=== PATIENT | male | born 1950 | race Caucasian/White ===

== ENCOUNTER 2018-09-29 02:14 | Emergency (ER) | payer MEDICARE, OTHER ==
[2018-09-29] MEDS ORDERED: Sodium Chloride 0.9% 10 ML Syringe FLUSH PRN (02:52)
[2018-09-29] MEDS ORDERED: Calcium Gluconate 10% 1 GM/10 ML SDV IVPUSH ONE (03:24)
[2018-09-29] MEDS ORDERED: Calcium Gluconate 10% 1 GM/10 ML SDV ONE (03:24)
[2018-09-29] MEDS: Atropine 0.1 MG/ML 10 ML Syringe IVPUSH PRN ×2 (03:33→03:43)
[2018-09-29] MEDS ORDERED: fentaNYL 100 MCG/2 ML SDV ONE (03:45)
[2018-09-29] MEDS: EPINEPHrine 1:10,000 1 MG/10 ML Syringe IVPUSH PRN ×2 (04:03→04:16)
[2018-09-29] MEDS ORDERED: EPINEPHrine 1 MG/ML SDV ONE (04:10)
[2018-09-29] MEDS ORDERED: Albuterol/Ipratropium 3.0-0.5 MG/3 ML Neb Soln NEB ONE (04:43)
[2018-09-29] MEDS ORDERED: EPINEPHrine 4 MG in Dextrose 5% in Water 250 ML IV SCH ×2 (04:45)
[2018-09-29] MEDS ORDERED: Piperacillin/Tazobactam 3.375 GM in Sodium Chloride 0.9% 50 ML IV SCH (04:45)
--- NOTE | 2018-09-29 06:40 | EDM.PDOC ---
ED HPI GENERAL MEDICAL PROBLEM - General Chief Complaint: General Stated Complaint: LT FACE LACERATION Time Seen by Provider: 09/29/18 02:30 Source of Information: Reports: Patient, Family, Old Records History Limitations: Reports: Other (dementia ) - History of Present Illness INITIAL COMMENTS - FREE TEXT/NARRATIVE: brought in by ambulance after a fall at home. His is present shortly after arrival and reports that he has been falling on occasion, and they're working to move him into a group home. He fell twice today, both witnessed. The second one he slipped getting off the toilet and caught his lip/jaw on the very edge of the tub. She states he did not otherwise hit his head, and seemed fine afterwards but the PCP has told them if he keeps falling he should come in to be considered for admission to help with the transition in his living situation as she is no longer able to care for him at home. Most recently he was diagnosed with pneumonia approximately 10 days ago and has been on doxycycline twice a day. His reports that he had a bad cough, and the cough has been improving since she started the doxycycline. He has a history of hypertension for which she is on metoprolol, and of Alzheimer's dementia for the last 5 years for which she is on amantadine and donezepil. He is not on any other medications. He does have a history of significant alcohol use prior to the development of his dementia, but his states he has not drunk in 5 years. Nonsmoker. No significant history of cardiac issues, respiratory issues, liver issues or other intra-abdominal pathology. No fever at home, cough is been improving, but his notes that his appetite was significantly decreased over the weekend. In the last couple of days she has noticed significant swelling in his lower extremities which is new, and today his abdomen seems to be more protuberant/ bloated. no nausea or vomiting, no bloody stools but she did notice they were slightly dark this morning. Patient himself is alert and oriented to himself, place, roughly time of year but has no recall of recent events. His states that this is baseline for him. - Related Data Allergies Allergy/AdvReac Type Severity Reaction Status Date / Time No Known Allergies Allergy Verified 08/31/13 09:41 Home Meds: Home Meds Aspirin [Adult Low Dose Aspirin EC] 81 mg PO DAILY 08/31/13 [History] Metoprolol Succinate [Toprol XL] 50 mg PO DAILY 08/31/13 [History] Donepezil HCl 10 mg PO DAILY 09/29/18 [History] Doxycycline [Doxycycline Hyclate] 100 mg PO DAILY 09/29/18 [History] Memantine HCl 10 mg PO DAILY 09/29/18 [History] Past Medical History Cardiovascular History: Reports: Hypertension Respiratory History: Reports: Other (See Below) Other Respiratory History: currently has pneumonia Neurological History: Reports: Alzheimers Disease Social & Family History - Family History Family Medical History: Unobtainable - Tobacco Use Smoking Status *Q: Unknown Ever Smoked - Caffeine Use Caffeine Use: Reports: Other Other Caffeine Use: unknown - Alcohol Use Alcohol Use History: Yes Alcohol Use in Last Twelve Months: No Alcohol Use Comment: heavy alcohol use prior to dementia, but hasn't in five years - Recreational Drug Use Recreational Drug Use: No - Living Situation & Occupation Living situation: Reports: Social History Comment: lives with his , has been falling at home and they are working group home placement. ED ROS GENERAL - Review of Systems Review Of Systems: See Below Constitutional: Reports: Weakness, Fatigue. Denies: Fever, Chills HEENT: Reports: No Symptoms, Other (cut on lip from fall ) Respiratory: Reports: Shortness of Breath, Wheezing, Cough, Sputum Cardiovascular: Reports: Edema. Denies: Dyspnea on Exertion Endocrine: Reports: No Symptoms GI/Abdominal: Reports: Anorexia. Denies: Constipation, Diarrhea, Vomiting : Denies: Frequency, Urgency Musculoskeletal: Reports: No Symptoms Skin: Reports: No Symptoms Neurological: Denies: Headache Psychiatric: Reports: Other (mentation at baseline per ) Hematologic/Lymphatic: Denies: Easy Bruising Immunologic: Reports: No Symptoms ED EXAM, GENERAL - Physical Exam Exam: See Below Free Text/Narrative:: Initial: general, alert, pleasant, oriented to self and place but not time and no memory of recent events. Head atraumatic, face has superficial hemostatic cut on left lower lip. No loose teeth, mucus membranes moist, throat without erythema. Neck mobile. Heart regular rate, no murmur heard, lungs crackles in bases, diminished in bases, few scattered wheezes. Abdomen distended, soft, no rebound or guarding. Peripheral pulses +2 Course - Vital Signs Text/Narrative:: nursing reports had brief episode of bradycardia recorded by auscultation and on sat probe on arrival but rhythm ok now initial impression - falls at home, recent pneumonia, new onset edema and probable ascites, wonder about heart failure. EKG shows prolonged QTc, RBBB labs, CXR ordered. On monitor after ?bradycardia on arrival. Last Recorded V/S: Last Vital Signs Temp 36.4 C 09/29/18 02:15 Pulse 39 L 09/29/18 02:15 Resp 20 09/29/18 02:15 BP 115/55 L 09/29/18 02:15 Pulse Ox 100 09/29/18 02:15 - Orders/Labs/Meds Labs: Laboratory Tests 09/29/18 09/29/18 09/29/18 Range/Units 02:55 02:55 02:55 WBC 11.7 (4.5-12.0) X10-3/uL RBC 3.85 L (4.30-5.75) x10(6)uL Hgb 11.8 L (13.5-17.8) g/dL Hct 35.4 (30.0-51.3) % MCV 91.8 (80-96) fL MCH 30.7 (27.7-33.6) pg MCHC 33.5 (32.2-35.4) g/dL RDW 15.9 H (11.5-15.5) % Plt Count 158 (125-369) X10(3)uL MPV 9.9 (7.4-10.4) fL Neut % (Auto) 82.2 H (46-82) % Lymph % (Auto) 6.2 L (13-37) % [place] % (Auto) 10.8 (4-12) % Eos % (Auto) 0 L (1.0-5.0) % Baso % (Auto) 0 (0-2) % Neut # (Auto) 9.7 H (1.6-8.3) # Lymph # (Auto) 0.7 (0.6-5.0) # [place] # (Auto) 1.3 (0.0-1.3) # Eos # (Auto) 0.0 (0.0-0.8) # Baso # (Auto) 0.0 (0.0-0.2) # PT 14.8 H (8.7-11.1) INR 1.54 H (0.89-1.13) POC VBG pH (7.31-7.41) POC VBG pCO2 (41-51) mmHG POC VBG HCO3 (23-28) mmol/L POC VBG Total CO2 (24-29) mmol/L POC VBG Base Excess (-2-3) mmol/L Sodium 137 (135-145) mmol/L Potassium 4.9 (3.5-5.3) mmol/L Chloride 103 (100-110) mmol/L Carbon Dioxide 22 (21-32) mmol/L BUN 55 H (7-18) mg/dL Creatinine 1.3 (0.70-1.30) mg/dL Est Cr Clr Drug Dosing TNP Estimated GFR (MDRD) 55 L (>60) BUN/Creatinine Ratio 42.3 H (9-20) Glucose 167 H (80-116) mg/dL Lactic Acid (0.4-2.2) mmol/L Calcium 9.0 (8.6-10.2) mg/dL Magnesium 1.7 L (1.8-2.5) mg/dL Total Bilirubin 1.0 (0.1-1.3) mg/dL AST 262 H* (5-25) IU/L ALT 41 H (12-36) U/L Alkaline Phosphatase 190 H (56-112) IU/L Troponin I (<0.017-0.056) ng/mL C-Reactive Protein (0.5-0.9) mg/dL NT-Pro-B Natriuret Pep (<=125) pg/mL Total Protein 7.1 (6.0-8.0) g/dL Albumin 2.4 L (3.2-4.6) g/dL Globulin 4.7 g/dL Albumin/Globulin Ratio 0.5 Urine Color (YELLOW) Urine Appearance (CLEAR) Urine pH (5.0-6.5) Ur Specific Edgar (1.010-1.025) Urine Protein (NEGATIVE) mg/dL Urine Glucose (UA) (NORMAL) mg/dL Urine Ketones (NEGATIVE) mg/dL Urine Occult Blood (NEGATIVE) Urine Nitrite (NEGATIVE) Urine Bilirubin (NEGATIVE) Urine Urobilinogen (NEGATIVE) mg/dL Ur Leukocyte Esterase (NEGATIVE) Urine RBC (0-5) Urine WBC (0-5) Ur Squamous Epith Cells (NS,R,O) Urine Bacteria (NS) Ethyl Alcohol (<0.03) % 09/29/18 09/29/18 09/29/18 Range/Units 02:55 02:55 02:55 WBC (4.5-12.0) X10-3/uL RBC (4.30-5.75) x10(6)uL Hgb (13.5-17.8) g/dL Hct (30.0-51.3) % MCV (80-96) fL MCH (27.7-33.6) pg MCHC (32.2-35.4) g/dL RDW (11.5-15.5) % Plt Count (125-369) X10(3)uL MPV (7.4-10.4) fL Neut % (Auto) (46-82) % Lymph % (Auto) (13-37) % [place] % (Auto) (4-12) % Eos % (Auto) (1.0-5.0) % Baso % (Auto) (0-2) % Neut # (Auto) (1.6-8.3) # Lymph # (Auto) (0.6-5.0) # [place] # (Auto) (0.0-1.3) # Eos # (Auto) (0.0-0.8) # Baso # (Auto) (0.0-0.2) # PT (8.7-11.1) INR (0.89-1.13) POC VBG pH (7.31-7.41) POC VBG pCO2 (41-51) mmHG POC VBG HCO3 (23-28) mmol/L POC VBG Total CO2 (24-29) mmol/L POC VBG Base Excess (-2-3) mmol/L Sodium (135-145) mmol/L Potassium (3.5-5.3) mmol/L Chloride (100-110) mmol/L Carbon Dioxide (21-32) mmol/L BUN (7-18) mg/dL Creatinine (0.70-1.30) mg/dL Est Cr Clr Drug Dosing Estimated GFR (MDRD) (>60) BUN/Creatinine Ratio (9-20) Glucose (80-116) mg/dL Lactic Acid 7.9 H* (0.4-2.2) mmol/L Calcium (8.6-10.2) mg/dL Magnesium (1.8-2.5) mg/dL Total Bilirubin (0.1-1.3) mg/dL AST (5-25) IU/L ALT (12-36) U/L Alkaline Phosphatase (56-112) IU/L Troponin I 0.028 (<0.017-0.056) ng/mL C-Reactive Protein 5.6 H* (0.5-0.9) mg/dL NT-Pro-B Natriuret Pep (<=125) pg/mL Total Protein (6.0-8.0) g/dL Albumin (3.2-4.6) g/dL Globulin g/dL Albumin/Globulin Ratio Urine Color (YELLOW) Urine Appearance (CLEAR) Urine pH (5.0-6.5) Ur Specific Edgar (1.010-1.025) Urine Protein (NEGATIVE) mg/dL Urine Glucose (UA) (NORMAL) mg/dL Urine Ketones (NEGATIVE) mg/dL Urine Occult Blood (NEGATIVE) Urine Nitrite (NEGATIVE) Urine Bilirubin (NEGATIVE) Urine Urobilinogen (NEGATIVE) mg/dL Ur Leukocyte Esterase (NEGATIVE) Urine RBC (0-5) Urine WBC (0-5) Ur Squamous Epith Cells (NS,R,O) Urine Bacteria (NS) Ethyl Alcohol < 0.03 (<0.03) % 09/29/18 09/29/18 09/29/18 Range/Units 02:55 04:22 04:40 WBC (4.5-12.0) X10-3/uL RBC (4.30-5.75) x10(6)uL Hgb (13.5-17.8) g/dL Hct (30.0-51.3) % MCV (80-96) fL MCH (27.7-33.6) pg MCHC (32.2-35.4) g/dL RDW (11.5-15.5) % Plt Count (125-369) X10(3)uL MPV (7.4-10.4) fL Neut % (Auto) (46-82) % Lymph % (Auto) (13-37) % [place] % (Auto) (4-12) % Eos % (Auto) (1.0-5.0) % Baso % (Auto) (0-2) % Neut # (Auto) (1.6-8.3) # Lymph # (Auto) (0.6-5.0) # [place] # (Auto) (0.0-1.3) # Eos # (Auto) (0.0-0.8) # Baso # (Auto) (0.0-0.2) # PT (8.7-11.1) INR (0.89-1.13) POC VBG pH 7.28 L (7.31-7.41) POC VBG pCO2 42.0 (41-51) mmHG POC VBG HCO3 19.9 L (23-28) mmol/L POC VBG Total CO2 21 L (24-29) mmol/L POC VBG Base Excess -7 L (-2-3) mmol/L Sodium (135-145) mmol/L Potassium (3.5-5.3) mmol/L Chloride (100-110) mmol/L Carbon Dioxide (21-32) mmol/L BUN (7-18) mg/dL Creatinine (0.70-1.30) mg/dL Est Cr Clr Drug Dosing Estimated GFR (MDRD) (>60) BUN/Creatinine Ratio (9-20) Glucose (80-116) mg/dL Lactic Acid (0.4-2.2) mmol/L Calcium (8.6-10.2) mg/dL Magnesium (1.8-2.5) mg/dL Total Bilirubin (0.1-1.3) mg/dL AST (5-25) IU/L ALT (12-36) U/L Alkaline Phosphatase (56-112) IU/L Troponin I (<0.017-0.056) ng/mL C-Reactive Protein (0.5-0.9) mg/dL NT-Pro-B Natriuret Pep 1380 H* (<=125) pg/mL Total Protein (6.0-8.0) g/dL Albumin (3.2-4.6) g/dL Globulin g/dL Albumin/Globulin Ratio Urine Color Yellow (YELLOW) Urine Appearance Slightly cloudy (CLEAR) Urine pH 6.0 (5.0-6.5) Ur Specific Edgar 1.025 (1.010-1.025) Urine Protein Negative (NEGATIVE) mg/dL Urine Glucose (UA) Normal (NORMAL) mg/dL Urine Ketones Negative (NEGATIVE) mg/dL Urine Occult Blood Moderate H (NEGATIVE) Urine Nitrite Negative (NEGATIVE) Urine Bilirubin Small H (NEGATIVE) Urine Urobilinogen 1 H (NEGATIVE) mg/dL Ur Leukocyte Esterase Negative (NEGATIVE) Urine RBC 5-10 H (0-5) Urine WBC 0-5 (0-5) Ur Squamous Epith Cells Occasional (NS,R,O) Urine Bacteria Few H (NS) Ethyl Alcohol (<0.03) % Meds: Medications Discontinued Medications Generic Name Dose Route Start Last Admin Trade Name Freq PRN Reason Stop Dose Admin Albuterol/Ipratropium 3 ml 09/29/18 04:43 09/29/18 04:48 Duoneb 3.0-0.5 Mg/3 Ml NEB 09/29/18 04:44 3 ml ONETIME ONE Administration Atropine Sulfate 0.5 mg 09/29/18 03:33 09/29/18 03:43 Atropine 0.1 Mg/Ml IVPUSH 0.5 mg ONETIME PRN Administration Other Calcium Gluconate Confirm 09/29/18 03:24 09/29/18 07:19 Calcium Gluconate Administered 09/29/18 03:25 Not Given Dose 1 gm .ROUTE .STK-MED ONE Calcium Gluconate 1 gm 09/29/18 03:24 09/29/18 03:29 Calcium Gluconate IVPUSH 09/29/18 03:25 1 gm ONETIME ONE Administration Epinephrine HCl Confirm 09/29/18 04:10 09/29/18 07:23 Adrenalin Administered 09/29/18 04:11 Not Given Dose 4 mg .ROUTE .STK-MED ONE Epinephrine HCl 0.1 mg 09/29/18 04:34 09/29/18 04:16 Epinephrine 1:10,000 IVPUSH 0.1 mg ASDIRECTED PRN Administration Other Fentanyl Confirm 09/29/18 03:45 09/29/18 05:49 Sublimaze Administered 09/29/18 03:46 Not Given Dose 100 mcg .ROUTE .STK-MED ONE Piperacillin Sod/Tazobactam 50 mls @ 100 mls/hr 09/29/18 04:45 09/29/18 04:36 Sod 3.375 gm/ Sodium Chloride IV 100 mls/hr Q6H DARA Administration Epinephrine HCl 4 mg/ Dextrose 254 mls @ 48.38 mls/hr 09/29/18 04:45 04:17 /Water IV 0.1 mcg/kg/min TITRATE DARA 48.38 mls/hr Administration Protocol 0.1 MCG/KG/MIN Piperacillin Sod/Tazobactam Sod Confirm 09/29/18 04:28 09/29/18 07:27 Zosyn Administered 09/29/18 04:29 Not Given Dose 3.375 gm .ROUTE .STK-MED ONE Sodium Chloride 10 ml 09/29/18 02:52 09/29/18 04:30 Saline Flush FLUSH 10 ml ASDIRECTED PRN Administration Keep Vein Open - Re-Assessments/Exams Free Text/Narrative Re-Assessment/Exam: called urgently to room, nurse noted patient HR to drop to 20's and he became unresponsive. CPR was initiated for approximately 1 minute then patient woke up and asked her what she was doing per report. Crash cart brought into room, C[place] on to scribe, please see their notes for exact timeframes. Additional IV access obtained and pacer pads applied. 1gm CaGluconate ordered as I am uncertain his potassium and labs not yet available. repeat EKG shows 3rd degree heart block. Atropine attempted X2. Patient placed on oxygen. hypotensive, but still able to respond to questions. External pacing started, increased, patient tolerating well but unable to capture. Appears captured on monitor but doppler of pulses is still 30's. No sedation given - tolerating with minimal discomfort until very high. Jen initiating arrangements for transport - ?helo vs ground vs fixed wing - and contacted [facility] for us. I spoke with Dr. Garcia, court recorder, who recommended intubation and transfer, accepted to ICU. Anesthesia requested to be present. labs reviewed - significant lactic acidosis, elevated BNP, slight bump in LFTs, creatinine and electrolytes ok, no anemia, WBCs normal but CRP high. gentle fluid bolus started Re-assessed patient, still responding at his previous baseline to questions and commands. Pacing attempt aborted, push dose epinephrine given with some response of heart rate. Decision made not to intubate given patient's mental status and tolerance of current poor hemodynamics, which I believe would worsen with positive pressure ventilation at this time. preparations made for transport --fallon placed, will try epinephrine drip, toe bandaged. Dose of antibiotics ordered for coverage although I don't think this is infection, would prefer to cover for possible intra-abdominal source at this time krishan given alcohol history. flight team arrived recommended trying dose of albuterol, ordered. Discussed recommendation from [place] regarding intubation, and decision made not to intubate at this time as patient has ok mentation despite low BP. patient transferred 10/01/18 08:43 Departure - Departure Time of Disposition: 16:09 Disposition: DC/Tfer to [facility] Condition: Serious Clinical Impression: Pneumonia, Bradycardia, Hypotension, Dementia - Discharge Information *PRESCRIPTION DRUG MONITORING PROGRAM REVIEWED*: Not Applicable *COPY OF PRESCRIPTION DRUG MONITORING REPORT IN PATIENT MADALYN: Not Applicable Referrals: Ray Helm MD [Primary Care Provider] - Forms: ED Department Discharge Additional Instructions: transferred by fixed wing to [facility]
--- NOTE | 2018-09-29 09:10 | PCM.SN ---
- Free Text/Narrative Note: [facility] Date: 09/29/2018 Time: 0340 to 0450 Pre-Dx: Cardiac Arrest Post-Rx: 3rd Degree Heart Block I was called by the ED physician for a cardiac arrest in progress. Upon arrival to the ED, the patient was awake and orientated with a 3rd degree heart block on the ECG monitor. He also had O2 at 10 L/M + by a nonrebreather mask on. His SpO2 was intermittent with saturations above 90% without complaints of respiratory distress. His lung sounds were with crackles and some wheezing. His BP was 90's systolic and decreasing. Initially, the ED physician thought about intubating this patient but this changed after we discussed the current patient picture and decided to hold off for now. The team tried to externally pace this patient with very little success even with the milliamps at 140. It was hard to feel a pulse either Femoral or Carotid but the patient was awake. The team did follow the severe bradycardia algorithm with boluses of Atropine. The physician and I discussed other treatments and agreed with 100 mcg's of Epinephrine 1/10,000 IV to be given. This resulted with some short-lived success with an increase in heart rate above 80 and a BP systolic above 110. The [place] team that was tele- communicating starting this Patient on an Epinephrine drip [4 mg's in 250 ml's] at 18 ml's per hour which was done. A repeat dose of 100 mcg's IV of Epinephrine 1/10,000 was given per me after discussing the dropping BP and the heart rate in the low 30's. This again had a very short-lived response. I did draw a venous blood gas because I was unable to feel any radial or ulnar pulses either side X 1 attempt. It was decided to not intubate until the flight team arrived because he was stable and awake without respiratory distress. The ECG continued to show a 3rd degree heart block with a ventricular rate of 32 with a BP systolic greater than 100. The flight team arrived and took over my part of care for this patient. Ray Mortensen CRNA [place]
== END 2018-09-29 05:05 ==
LOC: FB.ED 02:14
DX: I95.9 Hypotension, unspecified (principal); J18.9 Pneumonia, unspecified organism; G30.9 Alzheimer's disease, unspecified; F02.80 Dementia in other diseases classified elsewhere, unspecified severity, without behavioral disturbance, psychotic disturbance, mood disturbance, and anxiety; I10 Essential (primary) hypertension; Z79.82 Long term (current) use of aspirin; Z79.899 Other long term (current) drug therapy; R06.02 Shortness of breath
CPT/HCPCS: 36415; 51702; 80053; 81001; 82803; 83605; 83735; 83880; 84484; 85025; 85610; 86140; 87040; 92960; 94640; 96365; 96368; 96375; 96376; 99285; G0480; J0171; J0461; J0610; J2543; J7050; J7060; 93005; 99291; 99292; J7620-GY

== ENCOUNTER 2018-10-06 12:36 | Inpatient (IN) | payer MEDICARE, OTHER ==
[2018-10-06] MEDS ORDERED: Ondansetron 4 MG/2 ML SDV IV PRN (17:37)
[2018-10-06] MEDS ORDERED: Hypromellose 0.4% Ophth Soln 15 ML Bottle EYEBOTH PRN (17:37)
[2018-10-06] MEDS ORDERED: Acetaminophen 325 MG Tab PO PRN (17:37)
[2018-10-06] MEDS ORDERED: Bisacodyl 10 MG Supp RECTAL PRN (17:37)
[2018-10-06] MEDS ORDERED: Camphor/Menthol 0.5-0.5% Lotion 222 ML Bottle TOP PRN (17:37)
[2018-10-06] MEDS ORDERED: Glycopyrrolate 0.2 MG/ML 5 ML MDV IVPUSH PRN (17:37)
[2018-10-06] MEDS ORDERED: PHENOL MM PRN (17:37)
[2018-10-06] MEDS ORDERED: guaiFENesin/Dextromethorphan 100-10 MG/5 ML Soln 5 ML Cup PO PRN (17:37)
[2018-10-06] MEDS ORDERED: Bisacodyl 5 MG Tab PO PRN (17:37)
[2018-10-06] MEDS ORDERED: Lidocaine 2% HCl 6 ML JEL.PF.APP PRN (17:37)
[2018-10-06] MEDS ORDERED: Mineral Oil/Petrolatum Ophth Oint 3.5 GM Tube EYEBOTH PRN (17:37)
[2018-10-06] MEDS ORDERED: Hydrocortisone 2.5% Crm 30 GM Tube TOP PRN (17:37)
--- NOTE | 2018-10-06 17:44 | PCM.HP.2 ---
H&P History of Present Illness - General Date of Service: 10/06/18 Admit Problem/Dx: Admission Diagnosis/Problem Admission Diagnosis/Problem Heart block Source of Information: Family, Old Records History Limitations: Reports: Altered Mental Status - History of Present Illness Initial Comments - Free Text/Narative: This is a 68-year-old male patient with Alzheimer's disease. He fell at home and was seen here and then transferred to [place]. Complete heart block insulin of pneumonia and sepsis. He had a temporary pacemaker. Apparently he did not do well so they decided to withdraw his antibiotics and his pacemaker. The bottom back here to see how he would do in swing bed. The states she's done fairly well up until this fall. He has severe dementia but does remember family members. He cannot answer any questions. says he has a cough but no fevers. - Related Data Allergies/Adverse Reactions: Allergies Allergy/AdvReac Type Severity Reaction Status Date / Time No Known Allergies Allergy Verified 08/31/13 09:41 Home Medications: Home Meds Acetaminophen [Tylenol] 650 mg PO Q4H PRN 10/06/18 [History] Albuterol/Ipratropium [DuoNeb 3.0-0.5 MG/3 ML] 3 ml IH QID PRN 10/06/18 [History ] Benzocaine/Menthol [Cepacol Sore Throat Lozenge] 1 each MM Q2H PRN 10/06/18 [ History] Bisacodyl 5 mg PO DAILY PRN 10/06/18 [History] Bisacodyl [Dulcolax] 10 mg RC DAILY PRN 10/06/18 [History] Calcium Carbonate [Calcium] 500 mg PO QID PRN 10/06/18 [History] Camphor/Menthol [Sarna Lotion] 1 applic TOP QID PRN 10/06/18 [History] Dextran 70/Hypromellose [Artificial Tears] 2 drop EYEBOTH Q4H PRN 10/06/18 [ History] Dextromethorphan/guaiFENesin [Robitussin DM] 5 ml PO Q4H PRN 10/06/18 [History] Glycopyrrolate [Robinul] 0.2 mg IVPUSH Q4H PRN 10/06/18 [History] HYDROmorphone HCl/PF [Dilaudid 0.5 mg/0.5 ml Syringe] 0.5 mg IV Q4H PRN [History] Haloperidol Lactate [Haldol] 2.5 mg IV Q3H PRN 10/06/18 [History] Hydrocortisone [Anusol-HC] 1 applic RC Q4H PRN 10/06/18 [History] LORazepam [Ativan] 0.25 - 2 mg IV Q3H PRN 10/06/18 [History] Lidocaine 2% [Xylocaine 2% Jelly] 10 ml .XX ASDIRECTED PRN 10/06/18 [History] Mineral Oil/Petrolatum,White [Lubricant Eye Ointment] 1 applic EYEBOTH TID PRN 10/06/18 [History] Ondansetron [Zofran] 4 mg IV Q6H PRN 10/06/18 [History] Phenol [Chloraseptic] 2 spray MM Q2H PRN 10/06/18 [History] Sennosides/Docusate Sodium [Senna-S] 1 each PO QID PRN 10/06/18 [History] Past Medical History HEENT History: Reports: Cataract, Impaired Vision Cardiovascular History: Reports: Angina, Hypertension, Pacemaker, SOB on Exertion, Other (See Below) Other Cardiovascular History: temporary pacemaker in at present time. Respiratory History: Reports: SOB, Other (See Below) Other Respiratory History: currently has pneumonia Genitourinary History: Reports: Other (See Below) Other Genitourinary History: has foleys in placed. Scrotum is enlarged, and has been like that for past 3-5 days. Neurological History: Reports: Alzheimers Disease Psychiatric History: Reports: Alzheimers Disease, Dementia Other Psychiatric History: Diagnosed with Alzheimer and Dementia 5 years ago. Oncologic (Cancer) History: Reports: Lung - Infectious Disease History Infectious Disease History: Reports: Other (See Below) Other Infectious Disease History: pt has an infection of unknown origin,[facility] yet to figure it out. - Past Surgical History HEENT Surgical History: Reports: Cataract Surgery Cardiovascular Surgical History: Reports: Other (See Below) Other Cardiovascular Surgeries/Procedures: pacemaker temporary in now. GI Surgical History: Reports: Colonoscopy Neurological Surgical History: Reports: Other (See Below) Other Neurological Surgeries/Procedures: chronic back when he was still working. He is retired 8 years now. 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 Social & Family History - Family History Family Medical History: Unobtainable Cardiac: Reports: Other (See Below) Other Cardiac Family History: father has cardiac problem. Psychiatric: Reports: Other (See Below) Other Psychiatric Family History: father was an alcoholic Oncologic: Reports: Other (See Below) Other Oncologic Family History: Mother has cancer, pt's cant recall - Tobacco Use Smoking Status *Q: Former Smoker Used Tobacco, but Quit: No - Caffeine Use Caffeine Use: Reports: Coffee Other Caffeine Use: unknown - Recreational Drug Use Recreational Drug Use: No - Living Situation & Occupation Living situation: Reports: H&P Review of Systems - Review of Systems: Review Of Systems: See Below Exam - Exam Exam: See Below - Vital Signs Weight: 220 lb 1 oz - Exam General: Lethargic HEENT: Hearing Intact, TMs Clear Neck: Supple, Trachea Midline Lungs: Clear to Auscultation, Normal Respiratory Effort Cardiovascular: Regular Rate, Regular Rhythm, Bradycardia. No: Systolic Murmur GI/Abdominal Exam: Normal Bowel Sounds, Soft, Non-Tender, No Organomegaly, No Distention, No Abnormal Bruit, No Mass Extremities: Pedal Edema Neurological: No: Normal Speech, Normal Tone Neuro Extensive - Mental Status: No: Alert, Oriented x3, Normal Mood/Affect, Normal Cognition, Memory Intact Psychiatric: No: Alert, Normal Affect, Normal Mood - Problem List (1) Heart block SNOMED Code(s): 382098674 ICD Code: I45.9 - CONDUCTION DISORDER, UNSPECIFIED Status: Acute Current Visit: Yes (2) Pneumonia SNOMED Code(s): 283696305 ICD Code: J18.9 - PNEUMONIA, UNSPECIFIED ORGANISM Status: Acute Current Visit: Yes (3) Sepsis SNOMED Code(s): 13753646 ICD Code: A41.9 - SEPSIS, UNSPECIFIED ORGANISM Status: Acute Current Visit: Yes (4) Dementia SNOMED Code(s): 11720008 ICD Code: F03.90 - UNSPECIFIED DEMENTIA WITHOUT BEHAVIORAL DISTURBANCE Status: Acute Current Visit: No Problem List Initiated/Reviewed/Updated: Yes Orders Last 24hrs: Active Orders 24 hr Category Date Time Status Patient Status [ADT] Routine ADT 10/06/18 17:35 Ordered Height and Weight [RC] WEEKLY Care 10/06/18 17:35 Ordered Oxygen Therapy [RC] PRN Care 10/06/18 17:35 Ordered Up With Assistance [RC] ASDIRECTED Care 10/06/18 17:35 Ordered VTE/DVT Education [RC] Per Unit Routine Care 10/06/18 17:35 Ordered Vital Signs [RC] PER UNIT ROUTINE Care 10/06/18 17:35 Ordered Consult to Palliative Care [CONS] Routine Cons 10/06/18 17:39 Ordered Regular Diet [DIET] Diet 10/06/18 Dinner Ordered Acetaminophen [Tylenol] Med 10/06/18 17:37 Ordered 650 mg PO Q4H PRN Albuterol/Ipratropium [DuoNeb 3.0-0.5 MG/3 ML] Med 10/06/18 17:37 Ordered 3 ml INH QID PRN Benzocaine/Menthol [Cepacol Sore Throat Lozenge] Med 10/06/18 17:37 Ordered 1 each MM Q2H PRN Bisacodyl [Dulcolax] Med 10/06/18 17:37 Ordered 10 mg RECTAL DAILY PRN Bisacodyl [Dulcolax] Med 10/06/18 17:37 Ordered 5 mg PO DAILY PRN Calcium Carbonate [Calcium] Med 10/06/18 17:37 Ordered 500 mg PO QID PRN Camphor/Menthol [Sarna Lotion] Med 10/06/18 17:37 Ordered 1 applic TOP QID PRN Dextran 70/Hypromellose [Artificial Tears] Med 10/06/18 17:37 Ordered 2 drop EYEBOTH Q4H PRN Dextromethorphan/guaiFENesin [Robitussin DM] Med 10/06/18 17:37 Ordered 5 ml PO Q4H PRN Docusate Sodium/Sennosides [Senna Plus] Med 10/06/18 17:37 Ordered 1 each PO QID PRN Glycopyrrolate [Robinul] Med 10/06/18 17:37 Ordered 0.2 mg IVPUSH Q4H PRN HYDROmorphone HCl/PF [Dilaudid 0.5 mg/0.5 ml Syringe] Med 10/06/18 17:37 Ordered 0.5 mg IV Q4H PRN Haloperidol Lactate [Haldol] Med 10/06/18 17:37 Ordered 2.5 mg IV Q3H PRN Hydrocortisone [Proctozone-HC 2.5% Crm] Med 10/06/18 17:37 Ordered 1 applic TOP Q4H PRN LORazepam [Ativan] Med 10/06/18 17:37 Ordered 1 mg IV Q3H PRN Lidocaine HCl [Glydo] Med 10/06/18 17:37 Ordered 10 ml .XX ASDIRECTED PRN Mineral Oil/Petrolatum,White [Lubricant Eye Ointment] Med 10/06/18 17:37 Ordered 1 applic EYEBOTH TID PRN Ondansetron [Zofran] Med 10/06/18 17:37 Ordered 4 mg IV Q6H PRN Phenol [Chloraseptic] Med 10/06/18 17:37 Ordered 2 spray MM Q2H PRN Resuscitation Status Routine Resus Stat 10/06/18 17:35 Ordered Medication Orders Acetaminophen (Tylenol) 650 mg PO Q4H PRN PRN Reason: MILD PAIN/FEVER Albuterol/Ipratropium (Duoneb 3.0-0.5 Mg/3 Ml) 3 ml INH QID PRN PRN Reason: BRONCHOSPASM/WHEEZING Bisacodyl (Dulcolax) 5 mg PO DAILY PRN PRN Reason: Constipation Bisacodyl (Dulcolax) 10 mg RECTAL DAILY PRN PRN Reason: Constipation Camphor/Menthol (Sarna Lotion) ml TOP QID PRN PRN Reason: Itching Glycopyrrolate (Robinul) 0.2 mg IVPUSH Q4H PRN PRN Reason: SECRETIONS Guaifenesin/Phenylephrine HCl (Robitussin Dm) 5 ml PO Q4H PRN PRN Reason: Cough Hydrocortisone (Proctozone-Hc 2.5% Crm) gm TOP Q4H PRN PRN Reason: Hemorrhoids Lidocaine HCl (Glydo) 10 ml .XX ASDIRECTED PRN PRN Reason: URINARY CATHETER INSERTION Lorazepam (Ativan) 1 mg IV Q3H PRN PRN Reason: ANXIETY/RESTLESSNESS Non-Formulary Medication (Benzocaine/Menthol [Cepacol Sore Throat Lozenge]) 1 each MM Q2H PRN PRN Reason: SORE THROAT Non-Formulary Medication (Calcium Carbonate [Calcium]) 500 mg PO QID PRN PRN Reason: Indigestion Non-Formulary Medication (Dextran 70/Hypromellose [Artificial Tears]) 2 drop EYEBOTH Q4H PRN PRN Reason: Dry Eyes Non-Formulary Medication (Haloperidol Lactate [Haldol]) 2.5 mg IV Q3H PRN PRN Reason: AGITATION/RESTLESSNESS/ANXIETY Non-Formulary Medication (Hydromorphone Hcl/Pf [Dilaudid 0.5 Mg/0.5 Ml Syringe] ) 0.5 mg IV Q4H PRN PRN Reason: SEVERE PAIN Non-Formulary Medication (Mineral Oil/Petrolatum,White [Lubricant Eye Ointment] ) 1 applic EYEBOTH TID PRN PRN Reason: NON CLOSING EYES Non-Formulary Medication (Phenol [Chloraseptic]) 2 spray MM Q2H PRN PRN Reason: Sore Throat Ondansetron HCl (Zofran) 4 mg IV Q6H PRN PRN Reason: Nausea/Vomiting Senna/Docusate Sodium (Senna Plus) tab PO QID PRN PRN Reason: Constipation Assessment/Plan Comment:: 1. Admit to swing bed for long term care. 2. Consult palliative care. 3. Medicines and regular diet if he is alert up to take it. 4. DNR/DNI/comfort care
[2018-10-06] MEDS ORDERED: Benzocaine/Cetylpyridinium/Menthol Lozenge MUCMEM PRN (18:00)
[2018-10-06] MEDS ORDERED: Haloperidol Lactate 5 MG/ML SDV IVPUSH PRN (18:00)
[2018-10-06] MEDS: LORazepam 2 MG/ML SDV IV PRN (23:42)
[2018-10-07] MEDS: HYDROmorphone 2 MG/ML SDV IV PRN ×2 (05:16→12:38)
[2018-10-07] MEDS ORDERED: Lidocaine 2% HCl 6 ML JEL.PF.APP PRN (07:21)
[2018-10-07] MEDS ORDERED: Mineral Oil/Petrolatum Ophth Oint 3.5 GM Tube EYEBOTH PRN (08:15)
[2018-10-07] MEDS ORDERED: Calcium Carbonate 500 MG Tablet PO PRN (09:00)
[2018-10-07] MEDS: LORazepam 2 MG/ML SDV IV PRN (09:55)
[2018-10-07] MEDS: Sodium Chloride 0.9% 10 ML Syringe FLUSH PRN ×3 (09:55→23:39)
[2018-10-07] MEDS: Clotrimazole 1% Crm 30 GM Tube TOP SCH ×2 (10:21→20:04)
[2018-10-07] MEDS: Albuterol/Ipratropium 3.0-0.5 MG/3 ML Neb Soln INH PRN ×2 (10:24→18:07)
[2018-10-07] MEDS: Morphine 2 MG/ML Syringe IVPUSH PRN ×2 (18:07→23:37)
[2018-10-08] MEDS: Sodium Chloride 0.9% 10 ML Syringe FLUSH PRN ×7 (05:27→23:00)
[2018-10-08] MEDS: Morphine 2 MG/ML Syringe IVPUSH PRN ×6 (05:27→20:46)
[2018-10-08] MEDS: Clotrimazole 1% Crm 30 GM Tube TOP SCH ×2 (09:48→21:30)
[2018-10-09] MEDS: LORazepam 2 MG/ML SDV IV PRN ×3 (00:35→16:36)
[2018-10-09] MEDS: Sodium Chloride 0.9% 10 ML Syringe FLUSH PRN ×8 (00:36→21:48)
[2018-10-09] MEDS: Morphine 2 MG/ML Syringe IVPUSH PRN ×5 (04:10→21:47)
[2018-10-09] MEDS: Clotrimazole 1% Crm 30 GM Tube TOP SCH ×2 (09:25→21:21)
[2018-10-09] MEDS: Albuterol/Ipratropium 3.0-0.5 MG/3 ML Neb Soln INH PRN (18:12)
[2018-10-10] MEDS: Sodium Chloride 0.9% 10 ML Syringe FLUSH PRN ×4 (01:59→20:23)
[2018-10-10] MEDS: Morphine 2 MG/ML Syringe IVPUSH PRN ×5 (02:00→20:22)
[2018-10-10] MEDS: Clotrimazole 1% Crm 30 GM Tube TOP SCH ×2 (08:32→20:10)
[2018-10-10] MEDS: Albuterol/Ipratropium 3.0-0.5 MG/3 ML Neb Soln INH PRN (15:30)
== END 2018-10-10 23:30 | disposition expired | DRG 951 ==
LOC: FB.MS 14:40
PROVIDERS: ADMIT Family Medicine; ATTEND Family Medicine
DX: Z51.5 Encounter for palliative care (principal); A41.9 Sepsis, unspecified organism; J18.9 Pneumonia, unspecified organism; I44.2 Atrioventricular block, complete; C78.00 Secondary malignant neoplasm of unspecified lung; G93.40 Encephalopathy, unspecified; Z66 Do not resuscitate; G30.9 Alzheimer's disease, unspecified; F02.80 Dementia in other diseases classified elsewhere, unspecified severity, without behavioral disturbance, psychotic disturbance, mood disturbance, and anxiety; C80.1 Malignant (primary) neoplasm, unspecified; K74.60 Unspecified cirrhosis of liver; F10.21 Alcohol dependence, in remission; H54.7 Unspecified visual loss; I10 Essential (primary) hypertension; N50.89 Other specified disorders of the male genital organs; Z93.6 Other artificial openings of urinary tract status; Z86.718 Personal history of other venous thrombosis and embolism; Z87.891 Personal history of nicotine dependence; Z98.49 Cataract extraction status, unspecified eye; Z91.81 History of falling; Z79.899 Other long term (current) drug therapy; Z95.828 Presence of other vascular implants and grafts
CPT/HCPCS: 94640; A9270-GY; J1170; J1630; J2060; J2270; J7620-GY